=== PATIENT | female | born 1990 | race Caucasian/White ===

== ENCOUNTER 2017-09-08 07:58 | Outpatient (CLI) | payer OTHER ==
--- NOTE | 2017-09-08 11:00 | MRI ---
MRI OF THE CERVICAL SPINE WITH AND WITHOUT IV CONTRAST 09/08/2017 HISTORY: Headaches as well as bilateral upper and lower extremity weakness and numbness. Cervicalgia. Histo ry of Chiari malformation. COMPARISON: MRI of brain on 01/22/2014. FINDINGS: As noted on prior MRI of the brain, there is evidence of a Chiari I malformation. The spinal cord is normal in contour and signal intensity. No intradural or extradural defect is identified. The central spinal canal and neural foramina are widely patent at all levels of the cervical spine. Normal signal intensity is demonstrated in the bone marrow. No abnormal areas of enhancement are seen after the administration of intravenous contrast. IMPRESSION: 1. No intradural or extradural defect is identified. The central spinal canal and neural foramina a re patent throughout the cervical spine. 2. Chiari I malformation which is a stable finding compared to the MRI of brain on 01/22/2014. POS: [facility]
--- NOTE | 2017-09-08 11:07 | MRI ---
MRI OF BRAIN WITH AND WITHOUT IV CONTRAST 09/08/2017 HISTORY: Headache, bilateral upper and lower extremity weakness and numbness. History of Chiari malformation . Compression of brain. COMPARISON: 01/22/2014. FINDINGS: No signal abnormalities are seen throughout the brain. There is no evidence of an acute infarction. No abnormal areas of enhancement are seen after the administration of intravenous contrast. The cerebellar tonsils again extend below the level of the foramen magnum consistent with Chiari I m alformation, unchanged from the prior exam in 2013. The septum pellucidum and third ventricle are in the midline. The ventricular system is normal in s ize, shape, and position. The orbits, paranasal sinuses, and skull base have a normal MRI appearance. Appropriate flow voids d emonstrated at the base of the brain. IMPRESSION: 1. No acute intracranial abnormality is demonstrated. 2. Chiari I malformation, stable and noted on prior study in 2013. 3. MRI of brain is stable from prior exam. POS: [facility]
[2017-09-08] MEDS ORDERED: Gadobenate Dimeglumine 529 MG/1 ML (20ML VIAL) ONE ×2 (16:05→16:06)
== END 2017-09-08 07:59 | disposition home or self-care (01) ==
LOC: MRI 07:58
PROVIDERS: ATTEND Surgery
DX: G93.5 Compression of brain (principal); M54.2 Cervicalgia
CPT/HCPCS: 70553; 72156; A9579

== ENCOUNTER 2017-09-11 08:44 | Outpatient (CLI) | payer OTHER ==
[2017-09-11] MEDS ORDERED: Gadobenate Dimeglumine 529 MG/1 ML (20ML VIAL) ONE ×2 (16:36)
--- NOTE | 2017-09-11 16:42 | MRI ---
MRI LUMBAR SPINE WITH AND WITHOUT CONTRAST: Technique: Multiplanar, multisequential imaging of the lumbar spine obtained. Post contrast images o btained after administration of 10 cc of MultiHance. History: Low back pain. Bilateral lower extremity numbness and tingling. FINDINGS: Lumbar vertebrae maintain normal height and alignment. The disc spaces are preserved. There is no ev idence of significant disc bulge or disc protrusion in any of the visualized lumbar levels. No centr al canal stenosis. IMPRESSION: Unremarkable MRI of the lumbar spine. POS: [facility]
--- NOTE | 2017-09-11 16:55 | MRI ---
MRI THORACIC SPINE WITH AND WITHOUT CONTRAST: Date: 09/11/17 HISTORY: ICD-10: M54.16, M54.6. Bilateral lower extremity hypesthesia and paresthesia. Possible syrinx. TECHNIQUE: Multisequence MRI of thoracic spine obtained pre and post IV injection of 10 mL of MultiHance Gadoli nium based contrast agent. FINDINGS: There is no syrinx. Thoracic spinal cord is normal in size and signal. There is no abnormal enhancem ent or mass in the intramedullary, extramedullary/intradural, extradural, intraosseous, or periverte bral, spaces. The bone marrow signal is normal. No central spinal canal stenosis, neural foraminal s tenosis, cord impingement, or nerve root impingement, at any level. No high grade degenerative botello es. No significant disc herniation. IMPRESSION: Normal. POS: [facility]
--- NOTE | 2017-09-11 17:07 | RAD ---
RADIOGRAPH LUMBAR SPINE 5 VIEWS: HISTORY: 27-year-old female with lumbar radiculopathy. Technique: Three standard views plus lateral flexion and extension views. FINDINGS: Alignment is normal. Vertebral body heights and disc spaces are maintained. There is no evidence of fracture, significant osteophytes, pars interarticularis defects, or any other focal osseous abnorm ality. On the flexion view there is a minimal, 1.5 - 2 mm anterior translation of L4 on L5 which is probably not significant. Otherwise, there is no instability. IMPRESSION: Normal. [place] POS: [facility]
== END 2017-09-11 08:45 | disposition home or self-care (01) ==
LOC: MRI 08:44
PROVIDERS: ATTEND Surgery
DX: M54.16 Radiculopathy, lumbar region (principal); M54.6 Pain in thoracic spine
CPT/HCPCS: 72120; 72157; 72158; A9579

== ENCOUNTER 2017-10-27 17:48 | Observation (INO) | payer OTHER ==
[~2017-10-27 17:48] MED LIST: Iopamidol 370 76% 100 ML VIAL ONE
[2017-10-27 18:27] LABS: #Basophils 0.1 thou/uL (0.0-0.2); #Eosinphils 0.1 thou/uL (0.0-0.7); #Lymphocytes 2.2 thou/uL (1.20-3.40); #Monocytes 0.6 thou/uL (0.11-0.59); #Neutrophils 4.4 thou/uL (1.40-6.50); %Basophils 0.7 % (0.0-1.0); %Lymphocytes 30.4 % (21.0-51.0); %Monocytes 7.9 % (0.0-10.0); Red Blood Cell (RBC) Count 4.68 mill/uL (4.20-5.40); White Blood Cell (WBC) Count 7.4 thou/uL (4.8-10.8)
[2017-10-27 18:52] LABS: ALT (SGPT) 12 U/L (8-55); AST (SGOT) 20 U/L (5-34); Alkaline Phosphatase 63 U/L (40-150); Anion Gap 12 mmol/L (10-20); BUN (Urea Nitrogen) 12 mg/dL (7.0-18.7); CK (CPK) 70 U/L (29-168); Calc. Creatinine Clearance 0 mL/min (70-130); Calcium 10.3 mg/dL (7.8-10.44); Carbon Dioxide 27 mmol/L (22-29); Chloride 102 mmol/L (98-107); Estimated GFR-MDRD 88; Magnesium 2.4 mg/dL (1.6-2.6); Protein, Total 7.6 g/dL (6.0-8.3)
[2017-10-27 18:56] LABS: Troponin I Less than 0.010 ng/mL (< 0.028)
[2017-10-27 19:28] LABS: Bilirubin Negative (Negative); Blood, Urine Negative (Negative); Glucose, Urine (Dipstick) Negative (Negative); Ketone, Urine Negative (Negative); Nitrite Negative (Negative); Protein, Urine (Dipstick) Negative (Neg-Trace); Urobilinogen 0.2 mg/dL (0.2-1.0)
[2017-10-27 19:30] LABS: Bacteria/HPF None Seen HPF (None Seen); Hyaline Casts/LPF 0-3 HYALINE CAST LPF (0-3 Hyaline); RBC/HPF 0-3 HPF (0-3); Squamous Epithelial 0-3 HPF (0-3)
--- NOTE | 2017-10-27 22:06 | CT ---
CTA OF THE THORAX UTILIZING IV CONTRAST PE PROTOCOL WITH 3D REFORMATTED IMAGING 10/27/17 INDICATION: 27-year-old female with history of syncope; feeling weak and shaky since this morning. FINDINGS: No central or segmental pulmonary embolus is evident. Lungs are clear. No enlarged lymph nodes are ev ident. Heart and great vessels appear within normal limits. The visualized upper abdomen demonstrates a 9.5 mm hypodensity within the right hepatic lobe. This lesion was likely present on the comparison examination of 05/18/17 but is better seen today. This is incompletely characterized on the compariso n and current exam. IMPRESSION: 1. No central or segmental pulmonary embolus demonstrated. 2. Small hypodensity within the right hepatic lobe. It is not definitely a cyst and is not sawyer cterizable on the current study. If clinically indicated, followup CT of the abdomen utilizing a blayne ngioma protocol may be helpful for further characterization. MR examination may be another alternativ e. POS: [facility]
[2017-10-27] MEDS ORDERED: ALPRAZolam 0.5 MG TAB PO SCH (23:00)
[2017-10-27] MEDS ORDERED: Pregabalin 50 MG CAP PO SCH (23:00)
[2017-10-27] MEDS ORDERED: SUMAtriptan Succinate 50 MG TAB PO PRN ×2 (23:05→23:51)
[2017-10-27 23:07] VITALS: BMI 19.9
[2017-10-27] MEDS ORDERED: Acetaminophen 325 MG TAB PO PRN (23:07)
[2017-10-27] MEDS ORDERED: Ondansetron ODT 4 MG TAB SL PRN (23:07)
[2017-10-27] MEDS ORDERED: Ondansetron HCl/PF 4 MG/2 ML Vial IVP PRN (23:07)
[2017-10-28] MEDS: Sodium Chloride 0.9% 1,000 ML IV SCH ×2 (00:37→11:44)
[2017-10-28 05:02] LABS: #Eosinphils 0.2 thou/uL (0.0-0.7); #Lymphocytes 2.6 thou/uL (1.20-3.40); #Monocytes 0.6 thou/uL (0.11-0.59); #Neutrophils 3.5 thou/uL (1.40-6.50); %Basophils 0.6 % (0.0-1.0); %Eosinophils 2.6 % (0.0-10.0); %Lymphocytes 37.4 % (21.0-51.0); %Monocytes 8.6 % (0.0-10.0); Hematocrit 41.9 % (36.0-47.0); Mean Platelet Volume 9.9 fL (7.4-10.4); Red Blood Cell (RBC) Count 4.85 mill/uL (4.20-5.40); White Blood Cell (WBC) Count 6.9 thou/uL (4.8-10.8)
[2017-10-28 05:30] LABS: ALT (SGPT) 11 U/L (8-55); AST (SGOT) 18 U/L (5-34); Alkaline Phosphatase 61 U/L (40-150); Anion Gap 10 mmol/L (10-20); BUN (Urea Nitrogen) 13 mg/dL (7.0-18.7); Bilirubin, Total 0.9 mg/dL (0.2-1.2); Calc. Creatinine Clearance 91 mL/min (70-130); Calcium 9.6 mg/dL (7.8-10.44); Carbon Dioxide 26 mmol/L (22-29); Chloride 106 mmol/L (98-107); Estimated GFR-MDRD 89; Globulin 2.9 g/dL (2.4-3.5); Protein, Total 7.1 g/dL (6.0-8.3)
--- NOTE | 2017-10-28 07:35 | HP ---
DATE OF ADMISSION: 10/28/2017 CHIEF COMPLAINT: Generalized weakness mainly to the extremities. HISTORY OF PRESENT ILLNESS: The patient is a 27-year-old, she has significant medical history or his tory of generalized weakness since April of this year and she also has an aunt who also suffers from m ultiple sclerosis. The patient herself reported that within the last 2-3 months, she was experiencin g some, seeing black on her left side and would feel dizzy and would feel her legs giving out and wit hin the last 2-3 days she has been feeling more weakness in her legs and sometimes in both her arms. 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 The patient reported th at this happened twice and she was crawling on the floor because she was feeling so weak. She denied having any loss of consciousness. No trauma to her head. Sometimes, she feels foggy. She reports no fever, no nausea, no vomiting, no recent illness, no abdominal pain, no dysuria, no rash, and no c hest pain. She apparently is supposed to see Dr. Benton, neurologist on the 11/07/2017 for muscular disorder workup. Otherwise, patient has no other medical issues reported. PAST MEDICAL HISTORY: Sometimes migraine headache and generalized weakness that has been going on fo r few months for her. PAST SURGICAL HISTORY: She had three C-sections in the past. SOCIAL HISTORY: She denied using any illicit drugs nor alcohol. She does smoke cigarettes about maty f a pack a day. ALLERGIES: She does not have any allergies. FAMILY HISTORY: Again significant for multiple sclerosis in her aunt according to patient's mother. REVIEW OF SYSTEMS: All 12 systems were reviewed and pertinent positives were mentioned in the HPI, t he rest were negative. PHYSICAL EXAMINATION: VITAL SIGNS: On admission, her blood pressure was normal at 129/78, her pulse was 111, ox sat 98% on room air, respiratory rate was 18 with temperature of 98.1. GENERAL: Constitutionally, her strength for both of her legs is 4/5 and for her hands. Also, arms a nd hand with grasp is 4/5 as well. She is oriented x3. HEENT: Normal head exam. Atraumatic and normocephalic. Her eyes, EOM intact. ENT: Exam is normal. NECK: Normal range of motion. No meningeal sign. No tenderness. RESPIRATORY: Normal breath sounds. Clear. No respiratory distress. CARDIOVASCULAR: Regular heart rate and rhythm. Normal heart sounds. ABDOMEN: Soft, normal bowel sounds, no distention, no mass. No pulsatile mass. BACK: Normal back exam. MUSCULOSKELETAL: Upper and lower extremities with motor strength 4/5 on both left and the right. No rmal pedal pulses bilaterally. Sensation is intact. NEUROLOGIC: No focal sensory deficits. PSYCHIATRIC: A and O x3. Noted nuscle strength weakness. SKIN: Warm, dry, and normal in color. PSYCHIATRIC: She has normal affect. Communicate and conversant appropriately. IMAGING AND LABORATORY DATA: Chest CT was done showing possibility of right lobe of liver with 9.5 m m diameter density that may require additional imaging. Recommending CT hemangioma protocol for furt her evaluation which can be done outpatient. She had an elevated D-dimer on initial presentation of 0.64. CTA was performed which showed as previously mentioned right lobe of the liver with a 9.5 mm d iameter hypodensity. Recommending a CT hemangioma protocol which again can be worked as outpatient. Otherwise, the rest of her labs were within normal limits. WBC of 6.9 and hemoglobin of 13.4. Urin e is negative for any nitrites and leukocyte esterase is moderate to high. IMPRESSION AND PLAN: Generalized muscle weakness mainly in the extremities, causing to fall at home secondary to the weakness in her legs. Plan is for observation, consult OT, PT. Start her on some I V fluids gently at 75 to help her with her strength. Encouraged her to eat and we will consider Neur ology consult for further evaluation. Resume all of her home medications, which includes pregabalin, Lyrica and Celexa along with Xanax which she takes for anxiety and to help her. Patient also takes Imitrex at home for the previously mentioned history of migraine. Condition is fair. Activity as to lerated, bilateral sequential compression devices for deep venous thrombosis prophylaxis. We will co caitlin to follow up with the patient.
[2017-10-28] MEDS ORDERED: Pregabalin 50 MG CAP PO SCH ×2 (09:00)
[2017-10-28] MEDS ORDERED: ALPRAZolam 0.5 MG TAB PO SCH ×2 (09:00)
[2017-10-28] MEDS ORDERED: cefTRIAXone\\ROCEPHIN 1 GM in Sodium Chloride 0.9% 100 ML IVPB SCH (09:00)
[2017-10-28] MEDS ORDERED: cefTRIAXone\\ROCEPHIN 1 GM, Syringe 0.4 ML in Sterile Water 9.6 ML SLOW IVP SCH (09:00)
[2017-10-28] MEDS ORDERED: Citalopram 20 MG TAB PO SCH ×2 (09:00)
--- NOTE | 2017-10-28 11:09 | PDOC.EVN ---
Event Note - Event Note Event Note: Chart reviewed. Pt seen. Pt continues to complain of weakness in all four extremities. Awaiting PT/OT. Neurology service not available until Monday. Pt updated. Started ceftriaxone for ? UTI.
[2017-10-28] MEDS ORDERED: Ibuprofen 800 MG TAB PO PRN (11:17)
[2017-10-28 12:01] VITALS: BP 115/60; TEMP 98.7
--- NOTE | 2017-10-28 22:12 | DIS ---
DATE OF ADMISSION: 10/28/2017 PRIMARY CARE PHYSICIAN: Dr. Sarabjit Kimball. The patient was transferred to [facility] in [place] for further management on 10/28/2017. DISCHARGE DIAGNOSES: Weakness. HOSPITAL COURSE: Ms. Larose is a pleasant 27-year-old lady, who was admitted to [facility] on 10/28/2017 for weakness in all 4 extremities. Please refer to Dr. Mccoy's history and physical note from 2016 for further information. Neurology Service was consulted. However, Neurology Service was not available over this weekend at this facility. She has been accepted for further management at [facility] in [place], [place]. She is currently stable for transfer. Many thanks for allowing me to participate in your patient's care. Please feel free to contact me with any questions or concerns. DISCHARGE DESTINATION: [facility]. AIDE
== END 2017-10-28 16:57 | disposition short-term general hospital (02) ==
LOC: ERS 17:48 → 2SW 21:00
PROVIDERS: ADMIT Family Medicine; ATTEND Family Medicine
DX: R53.1 Weakness (principal); G43.909 Migraine, unspecified, not intractable, without status migrainosus; Z98.891 History of uterine scar from previous surgery
CPT/HCPCS: 36415; 71275; 80053; 81003; 81015; 81025; 82550; 83735; 84443; 84484; 85025; 85379; 96361; 96374; A4216; G0378; J0696; Q0162

== ENCOUNTER 2017-12-18 16:24 | Emergency (ER) | payer OTHER ==
[2017-12-18] MEDS ORDERED: Acetaminophen 500 MG TAB ONE (17:49)
[2017-12-18 18:16] LABS: Bilirubin Negative (Negative); Blood, Urine Large (Negative); Clarity CLOUDY (Clear); Glucose, Urine (Dipstick) Negative (Negative); Leukocyte Trace (Negative); Nitrite Negative (Negative); Protein, Urine (Dipstick) Negative (Neg-Trace); Specific Gravity, Urine 1.017 (1.002-1.036); Urobilinogen 0.2 mg/dL (0.2-1.0)
[2017-12-18 18:19] LABS: Bacteria/HPF None Seen HPF (None Seen); Hyaline Casts/LPF 0-3 HYALINE CAST LPF (0-3 Hyaline); RBC/HPF GREATER THAN 50-TNTC HPF (0-3); Squamous Epithelial 0-3 HPF (0-3); WBC/HPF 0-3 HPF (0-3)
[2017-12-18 18:25] LABS: Pregnancy Test - Urine (BHCG) Negative (Negative); Pregu Control Background? CLEAR/WHITE (CLR/WHITE); Pregu Control Bar Appear? YES (CONTROL BAR); Specific Gravity 1.017 (1.002-1.036)
[2017-12-18] MEDS ORDERED: Ketorolac Tromethamine 30 MG/ML VIAL ONE (18:49)
[2017-12-18] MEDS ORDERED: Diazepam 5 MG TAB ONE (18:50)
[2017-12-18] MEDS ORDERED: Bacitracin Zinc 1 Packet ONE (19:11)
--- NOTE | 2017-12-18 19:12 | RAD ---
LEFT WRIST RADIOGRAPHS THREE VIEWS: Date: 12-18-17 Provided Clinical History: Left wrist pain status post injury. FINDINGS: There is no evidence for fracture or other acute osseous abnormality. If there is persistent clinical concern, conservative management and follow up imaging are advised. IMPRESSION: As above. POS: [facility]
--- NOTE | 2017-12-18 20:09 | RAD ---
THREE VIEWS LEFT HAND: Date: 12-18-17 Provided Clinical History: Left hand pain status post injury. FINDINGS: No evidence for fracture or other acute osseous abnormality. If there is persistent clinical concern, conservative management and follow up imaging are advised. IMPRESSION: As above. POS: [facility]
--- NOTE | 2017-12-18 20:10 | RAD ---
LEFT KNEE RADIOGRAPHS FOUR VIEWS: Date: 12-18-17 Provided Clinical History: Left knee pain status post injury. FINDINGS: There is no evidence for fracture or other acute osseous abnormality. Alignment appears anatomic. Michelle nt spaces appear preserved. No evidence for significant knee joint capsular distention. IMPRESSION: No evidence for an acute abnormality. If there is persistent clinical concern, conservative managemen t and follow up imaging are advised. POS: [facility]
--- NOTE | 2017-12-18 20:12 | RAD ---
LUMBAR SPINE RADIOGRAPHS TWO VIEWS: Date: 12-18-17 Provided Clinical History: Back pain status post injury. FINDINGS: Five non-rib bearing lumbar type vertebral bodies are present. Lumbar alignment appears normal. Verte bral body heights appear preserved. Pedicles appear intact. Probable Schmorl's node formation involvi ng the superior endplate of L3 anteriorly. This could also reflect overlying bowel gas. IMPRESSION: No definite evidence for acute osseous abnormality. If there is persistent clinical concern, conserva tive management and follow up imaging are advised. POS: [facility]
== END 2017-12-18 19:35 | disposition home or self-care (01) ==
LOC: ERS 16:24
DX: T23.112A Burn of first degree of left thumb (nail), initial encounter (principal); S80.212A Abrasion, left knee, initial encounter; M54.5 Low back pain; F41.9 Anxiety disorder, unspecified; F32.9 Major depressive disorder, single episode, unspecified; F17.210 Nicotine dependence, cigarettes, uncomplicated; V43.52XA Car driver injured in collision with other type car in traffic accident, initial encounter
CPT/HCPCS: 72100; 81003; 81015; 81025; 96372; J1885

== ENCOUNTER 2018-06-22 12:16 | Outpatient (CLI) | payer OTHER ==
[2018-06-22 13:39] LABS: Hemoglobin 12.7 g/dL (12.0-16.0); Mean Corpuscular HGB CONC 33.5 g/dL (32.0-36.0); Mean Corpuscular Hemoglobin 27.9 pg (27.0-31.0); Mean Corpuscular Volume 83.2 fL (78.0-98.0); Mean Platelet Volume 9.6 fL (7.4-10.4); Platelet Count 157 thou/uL (130-400); RBC Distribution Width 12.6 % (11.5-14.5); Red Blood Cell (RBC) Count 4.55 mill/uL (4.20-5.40); White Blood Cell (WBC) Count 6.6 thou/uL (4.8-10.8)
[2018-06-22 14:01] LABS: BHCG - Serum Negative (NEGATIVE); Pregs Control Background? CLEAR/WHITE (CLR/WHITE); Pregs Control Bar Appear? YES (CONTROL BAR)
[2018-06-22 14:09] LABS: Anion Gap 11 mmol/L (10-20); BUN (Urea Nitrogen) 10 mg/dL (7.0-18.7); Calc. Creatinine Clearance 0 mL/min (70-130); Calcium 9.5 mg/dL (7.8-10.44); Carbon Dioxide 24 mmol/L (22-29); Chloride 106 mmol/L (98-107); Estimated GFR-MDRD Greater than 90; Glucose 86 mg/dL (70-105); Potassium 4.5 mmol/L (3.5-5.1); Sodium 136 mmol/L (136-145)
== END 2018-06-22 12:17 | disposition home or self-care (01) ==
LOC: LABBT 12:16
PROVIDERS: ATTEND Student in an Organized Health Care Education/Training Program
DX: Z01.812 Encounter for preprocedural laboratory examination (principal); N94.6 Dysmenorrhea, unspecified; N92.0 Excessive and frequent menstruation with regular cycle; N92.6 Irregular menstruation, unspecified
CPT/HCPCS: 80048; 84703; 85027; 86850; 86900; 86901

== ENCOUNTER 2018-06-25 05:48 | Day surgery (SDC) | payer OTHER ==
[2018-06-22 12:59] VITALS: BMI 20.9
[2018-06-25] MEDS ORDERED: Famotidine/PF 20 mg/2ml Vial ONE (06:06)
[2018-06-25] MEDS ORDERED: Gabapentin 300 MG CAP ONE (06:06)
[2018-06-25] MEDS ORDERED: CeleCOXIB 100 MG CAP ONE (06:07)
[2018-06-25] MEDS ORDERED: CEFAZOLIN/Water 2 GM/20 ML SYRINGE ONE (06:08)
[2018-06-25] MEDS ORDERED: Bupivacaine HCl 0.5%/Epinephrine 1:200,000/PF 30 ml Vial ONE (06:56)
[2018-06-25] MEDS ORDERED: Scopolamine 1.5 mg/72 hour Patch ONE (06:57)
[2018-06-25] MEDS ORDERED: Fentanyl 100 MCG/2 ML VIAL ONE (07:11)
[2018-06-25] MEDS ORDERED: Midazolam HCl 2 mg/2 ml Vial ONE (07:28)
[2018-06-25] MEDS ORDERED: HYDROcodone/Acetaminophen 5/325 mg Tablet ONE ×2 (13:20)
[2018-06-25] MEDS ORDERED: Glycopyrrolate 0.2 MG/ML 5 ML SYRINGE ONE (15:05)
[2018-06-25] MEDS ORDERED: Dexamethasone 20 MG/5 ML VIAL ONE (15:05)
[2018-06-25] MEDS ORDERED: PROPOFOL 200 MG/20 ML VIAL ONE (15:05)
[2018-06-25] MEDS ORDERED: Ondansetron HCl/PF 4 MG/2 ML Vial ONE (15:05)
[2018-06-25] MEDS ORDERED: Lidocaine 1% PF 5 ML VIAL ONE (15:05)
--- NOTE | 2018-06-26 11:56 | OP ---
DATE OF OPERATION: 06/25/2018 PREOPERATIVE DIAGNOSES: 1. Menometrorrhagia. 2. Pelvic pain. POSTOPERATIVE DIAGNOSES: 1. Menometrorrhagia. 2. Pelvic pain. PROCEDURES: Robotic assisted single site total laparoscopic hysterectomy and bilateral salpingectomy . ANESTHESIA: General endotracheal. ATTENDING SURGEON: Negar Wyatt M.D. DEPARTMENT SECRETARY: Fabrizio Sanchez M.D. COMPLICATIONS: None. DRAINS: Mary catheter. PATHOLOGY: Uterus, cervix, bilateral fallopian tubes. ESTIMATED BLOOD LOSS: 100 mL. INTRAVENOUS FLUIDS: 1300 mL crystalloid. URINE OUTPUT: 350 mL of clear urine. OPERATIVE TECHNIQUE: The patient was taken to the operating room where general anesthesia was obtain ed without difficulty. The patient was prepped and draped in a sterile fashion in a dorsal lithotomy position. A Mary catheter was placed in the bladder. A speculum was placed in the vagina. The an terior lip of the cervix was grasped with a single tooth tenaculum. The cervix was progressively dil ated with Benito dilators and the uterus then sounded to 8 cm. The ESTEPHANIA manipulator was assembled with an 8 cm tip and a 3.5 cm colpotomizer ring. The manipulator tip was inserted into the uterine fundu s and speculum was removed out of the vagina and the colpotomizer ring was advanced to fit snugly mat und the cervix and tenaculum was removed off the cervix. Legs were placed in low lithotomy. Balloon s were inflated and attention was turned to the abdomen. A 0.5% Marcaine with epinephrine was infilt rated into the umbilicus. An 8 mm skin incision was made in the umbilicus and the Veress needle was passed into the abdomen noting an opening pressure of 2 mmHg. Pneumoperitoneum was obtained without difficulty. The Veress needle was removed and the 8 mm trocar was advanced into the abdomen and conf irmed placement with the robotic camera. Trendelenburg was obtained. At that point, there was a sin gle filmy omental adhesion to the mid abdomen and there were some filmy adhesions of the bladder flap noted. Single site was felt to be feasible and therefore, 8 mm camera and trocar were removed out o f the abdomen. The umbilicus was grasped with Antoine's bilaterally, tented up the abdominal wall and skin incision was extended to approximately 2.5 cm total and the subcutaneous tissue was dissected o ff of the fascia with the Conte scissors and the fascia was sharply incised with the Conte scissors to accommodate approximately 2.5 cm. At that time, the intuitive single site trocar was moistened and c lamped with the Kajal clamp. A right angle was used to tent up the abdominal wall and this trocar wa s inserted into the umbilical incision. Once inserted, the camera port was placed into it and pneumo peritoneum had been reestablished. The camera was inserted and at that time, the single site trocars were inserted first on arm #2 followed by arm #1 watching the trocars entering into the abdomen on e ach side. The robot was then brought in between the legs to dock. A camera was docked first followe d by arm #2 and then arm #1 again noting the location of the distal tip of the trocar. After docking , the instruments were placed into the abdomen under direct visualization on first arm #2, then arm # 1 and at that time, a left upper quadrant library assistant port was placed, it was an 11 mm after infiltrati ng with 0.5% Marcaine with epinephrine. The surgeon console then took control. The hook was present in the right arm and the fenestrated was present in the left arm. The right fallopian tube was gras ped and elevated. Cautery was performed of the distal end of the mesosalpinx and the hook was used t o incise this cauterized area. The avascular portion just below the fallopian tube was incised with a hook to the level of the cornua. The fallopian tube was then clamped across, cauterized, transecte d and removed out of the abdomen by the library assistant. The utero-ovarian on the right side was cauterize d multiple times and then incised with the hook in the midportion and cautery was performed down to t he level of the round ligament followed by incision. The round ligament was cauterized in the midpor tion and then incised with a hook. The anterior leaf of the broad ligament was then opened up down t o the level of the bladder flap and then the posterior leaf was also dropped down. Some blunt dissec tion of the retroperitoneum was performed to begin skeletonizing the vessels. The bladder flap was t hen addressed. The fenestrated was slipped underneath the filmy adhesions to the lower segment and t hus a clear window was noted. The hook was used to incise. The initial layer was a very filmy howev er, down below became slightly more dense. The bladder was backfilled to note the limitations of the bladder and it was noted that close to the uterus was just scar. No actual bladder was present and so this was carefully layered out, taking a lateral approach and incising thin portions of tissue as long as it was clearly seen through with a hook and hemostasis was achieved with hook the as well as the fenestrated irrigation was performed of this area as well. The left fallopian tube was then gras ped and elevated and the mesosalpinx at the distal end was cauterized with the fenestrated and then i ncised with the hook and avascular portion of the mesosalpinx was incised with the hook to the level of the cornua. The fallopian tube was clamped across, cauterized, transected and removed out of the abdomen. The utero-ovarian was cauterized multiple times and transected, and mesovarium was sequenti ally clamped, cauterized, and transected down to the level of the round ligament. For hemostasis, th e round ligament was clamped in the mid portion cauterized and transected. The posterior leaf of the broad ligament was dropped down to the level of the uterosacral and the retroperitoneum was bluntly dissected with a push and spread method with the fenestrated to develop the space allow the ureter to fall more lateral and to skeletonizing the uterine vessels. The anterior leaf of the broad ligament was also opened up and this was done carefully undermining with the fenestrated to ensure a clear wi ndow and that there were no bladder adhesions higher up on the uterus. This was taken down to the bl adder flap. Again, the bladder flap was a little bit more densely scarred on the left side and so ca reful dissection of the bladder to ensure no inadvertent damage was performed including backfilling a nd decompressing multiple times and approaching a lateral window and then layering out as long as a c lear see through tissue is present to allow the bladder to be dissected below the level of the colpot omizer ring. Once this was completed, the pubocervical fascia was scored with the hook and then blun t dissection distally was performed to ensure any adventitial fibers was to be taken down below the l evel of the colpotomizer ring and that the pubocervical fascia will be incorporated into the closure for support. The vessels were then cauterized bilaterally with the fenestrated. Anterior colpotomy was performed with the hook. This was carried around laterally and the fenestrated was slipped under neath the uterine pedicles and cauterized for additional securing and hemostasis. The vessels were t hen incised bilaterally after cautery and the hook also was used to drop the uterine pedicle away fro m the vaginal cuff edge medially and then posterior colpotomy was performed and completed and the morongo raúl was then removed into the vagina. Irrigation was performed of the pelvis and the hemostasis was noted to be excellent on low pressure check. The hook was traded out for the needle driver starting gate and the S tratafix suture was used and was passed into the abdomen. The vaginal cuff was then closed; however, difficulty was met in driving the needle through the tissue secondary to angulation and possibly mal functioning needle driver starting gate. After approximately 20 minutes of attempting this closure and having diff iculty driving the needle to the tissue and also just difficulty in general to pull the suture throug h, the decision was made to close vaginally. Therefore, the needle was cut and removed out of the ab domen. The instruments were removed out of the abdomen and the robot was undocked. The vaginal cuff edges anterior and posteriorly was grasped with Allis clamps and the vaginal cuff was closed with 0 Vicryl in a [id number]-gh-ruyre fashion with excellent closure noted. There was no active bleeding and t his was closed all the way across from below. At that time, attention was turned to the abdomen. Th e camera was inserted back into the abdomen. Pneumoperitoneum was re-established and a 7 x 6 AmnioFi x was trimmed down to approximately 6 x 4 cm and this was placed over the vaginal cuff after irrigati on had been performed for improved wound healing and to prevent adhesions. At that time, the camera and instruments were removed out of the abdomen. The trocar was also removed out of the abdomen. Th e fascia was closed with 0 Vicryl in a craevu-rr-ksglo fashion. This required approximately 5 figure -of-eights. The subcutaneous tissue was irrigated. The remaining 2 x 2 cm and AmnioFix piece was pl aced on top of the fascia, and the skin was then closed over it with a 4-0 Monocryl in a subcuticular fashion and Dermabond was applied as well as a pressure dressing. The patient tolerated the procedu re well. Sponge and needle counts were correct x2. The patient was taken to recovery room in stable condition. Patient received Ancef 2 grams prior to procedure.
== END 2018-06-25 16:01 | disposition home or self-care (01) ==
LOC: SDC 05:48
PROVIDERS: ATTEND Student in an Organized Health Care Education/Training Program
PROC: 0UT74ZZ Resection of Bilateral Fallopian Tubes, Percutaneous Endoscopic Approach (ICD-10-PCS; principal; 2018-06-25)
PROC: 0UT94ZZ Resection of Uterus, Percutaneous Endoscopic Approach (ICD-10-PCS; principal; 2018-06-25)
DX: N73.6 Female pelvic peritoneal adhesions (postinfective) (principal); N94.6 Dysmenorrhea, unspecified; N92.0 Excessive and frequent menstruation with regular cycle; F41.9 Anxiety disorder, unspecified; F32.9 Major depressive disorder, single episode, unspecified; G43.909 Migraine, unspecified, not intractable, without status migrainosus; F17.210 Nicotine dependence, cigarettes, uncomplicated; Z79.899 Other long term (current) drug therapy; Z98.51 Tubal ligation status
CPT/HCPCS: 88307; C1788; J0670; J1100; J2001; J2250; J2405; J2704; J3010; Q9968; S0028

== ENCOUNTER 2018-07-02 20:36 | Emergency (ER) | payer OTHER ==
[~2018-07-02 20:36] MED LIST changes: +ISOVUE-370 76%-LOCM 1 ML ONE; -Iopamidol 370 76% 100 ML VIAL ONE
[2018-07-02 21:04] LABS: Bilirubin Negative (Negative); Blood, Urine Moderate (Negative); Clarity CLOUDY (Clear); Glucose, Urine (Dipstick) Negative (Negative); Leukocyte Moderate (Negative); Nitrite Negative (Negative); Protein, Urine (Dipstick) Negative (Neg-Trace); Specific Gravity, Urine 1.015 (1.002-1.036); Urobilinogen 0.2 mg/dL (0.2-1.0); pH, Urine 5.5 (5.0-9.0)
[2018-07-02 21:07] LABS: Bacteria/HPF None Seen HPF (None Seen); Hyaline Casts/LPF 4-6 HYALINE CAST LPF (0-3 Hyaline); Pathc Cast-AUWi Flag 0.72 (0-2.49); WBC/HPF 21-50 HPF (0-3)
[2018-07-02 22:05] LABS: #Eosinphils 0.2 thou/uL (0.0-0.7); #Lymphocytes 1.6 thou/uL (1.20-3.40); #Monocytes 0.6 thou/uL (0.11-0.59); #Neutrophils 5.1 thou/uL (1.40-6.50); %Basophils 0.6 % (0.0-1.0); %Eosinophils 2.7 % (0.0-10.0); %Lymphocytes 20.6 % (21.0-51.0); %Monocytes 7.7 % (0.0-10.0); %Neutrophils 68.3 % (42.0-75.0); Hemoglobin 12.6 g/dL (12.0-16.0); Mean Corpuscular HGB CONC 34.6 g/dL (32.0-36.0); Mean Corpuscular Hemoglobin 28.6 pg (27.0-31.0); Mean Corpuscular Volume 82.8 fL (78.0-98.0); Mean Platelet Volume 9.7 fL (7.4-10.4); Platelet Count 175 thou/uL (130-400); RBC Distribution Width 12.7 % (11.5-14.5); Red Blood Cell (RBC) Count 4.41 mill/uL (4.20-5.40); White Blood Cell (WBC) Count 7.5 thou/uL (4.8-10.8)
[2018-07-02 22:20] LABS: ALT (SGPT) 10 U/L (8-55); AST (SGOT) 16 U/L (5-34); Albumin 4.4 g/dL (3.5-5.0); Alkaline Phosphatase 61 U/L (40-150); Anion Gap 16 mmol/L (10-20); BUN (Urea Nitrogen) 18 mg/dL (7.0-18.7); Bilirubin, Total 0.8 mg/dL (0.2-1.2); Calc. Creatinine Clearance 0 mL/min (70-130); Calcium 9.9 mg/dL (7.8-10.44); Carbon Dioxide 23 mmol/L (22-29); Chloride 106 mmol/L (98-107); Estimated GFR-MDRD 87; Globulin 3.1 g/dL (2.4-3.5); Glucose 90 mg/dL (70-105); Lipase 12 U/L (8-78); Potassium 3.9 mmol/L (3.5-5.1); Protein, Total 7.5 g/dL (6.0-8.3); Sodium 141 mmol/L (136-145)
--- NOTE | 2018-07-02 23:27 | CT ---
CT ABDOMEN AND PELVIS WITH IV CONTRAST: INDICATIONS: History of hysterectomy today with increasing pain and vomiting. COMPARISON: Prior exam dated 05/18/2017. FINDINGS: The lung bases are clear. There is a moderate amount of scattered free air within the abdomen and pelvis. There is a 1.2 cm, heterogeneously enhancing lesion in the right hepatic dome when compared to a prio r exam dated 05/18/2017, and a CTA chest dated 10/27/2017, is suspicious for a small hemangioma. The pancreas, adrenal glands, and spleen appear within normal limits. There is a normal appendix in the right lower quadrant. There is mild free fluid in the pelvis. Unopacified large and small bowel appear within normal limits. No definite acute osseous abnormality is evident. IMPRESSION: 1. Scattered moderate free air within the abdomen and pelvis, which may be post procedural in nature . Bowel injury cannot be entirely excluded. But no additional overt evidence of bowel injury. 2. Mild free fluid in the pelvis also may be post procedural in nature. 3. Heterogeneously enhancing hypodense lesion in the right hepatic dome and seen on a CTA examinatio n dated 10/27/2017. This was also seen on a CT of the abdomen and pelvis dated 05/18/2017. Overall, the enhancement pattern of this lesion is suspicious for hemangioma; however, this is incompletely c haracterized. Recommend a follow-up MRI of the abdomen, utilizing hemangioma protocol for additional characterized. 4. Other findings as above. POS: [facility]
== END 2018-07-03 00:20 | disposition home or self-care (01) ==
LOC: ERS 20:36
DX: G89.18 Other acute postprocedural pain (principal); D18.09 Hemangioma of other sites; G43.909 Migraine, unspecified, not intractable, without status migrainosus; F41.9 Anxiety disorder, unspecified; F32.9 Major depressive disorder, single episode, unspecified; F17.210 Nicotine dependence, cigarettes, uncomplicated; Z79.899 Other long term (current) drug therapy
CPT/HCPCS: 74177; 80053; 81003; 81015; 83605; 83690; 85025; 87086; 96361; 96374; 96375

== ENCOUNTER 2018-07-12 19:11 | Emergency (ER) | payer OTHER ==
[2018-07-12 19:36] LABS: Bilirubin Negative (Negative); Blood, Urine Trace (Negative); Clarity CLEAR (Clear); Glucose, Urine (Dipstick) Negative (Negative); Leukocyte Negative (Negative); Nitrite Negative (Negative); Protein, Urine (Dipstick) Negative (Neg-Trace); Specific Gravity, Urine 1.022 (1.002-1.036); Urobilinogen 0.2 mg/dL (0.2-1.0)
[2018-07-12 19:38] LABS: Bacteria/HPF None Seen HPF (None Seen); Hyaline Casts/LPF 0-3 HYALINE CAST LPF (0-3 Hyaline); Squamous Epithelial 0-3 HPF (0-3); WBC/HPF 0-3 HPF (0-3)
[2018-07-12 19:41] LABS: #Eosinphils 0.1 thou/uL (0.0-0.7); #Lymphocytes 1.9 thou/uL (1.20-3.40); #Monocytes 0.5 thou/uL (0.11-0.59); #Neutrophils 3.4 thou/uL (1.40-6.50); %Basophils 0.7 % (0.0-1.0); %Eosinophils 2.2 % (0.0-10.0); %Lymphocytes 31.7 % (21.0-51.0); %Monocytes 7.9 % (0.0-10.0); %Neutrophils 57.5 % (42.0-75.0); Hemoglobin 12.5 g/dL (12.0-16.0); Mean Corpuscular HGB CONC 32.7 g/dL (32.0-36.0); Mean Corpuscular Hemoglobin 27.5 pg (27.0-31.0); Mean Corpuscular Volume 84.1 fL (78.0-98.0); Mean Platelet Volume 9.9 fL (7.4-10.4); Platelet Count 225 thou/uL (130-400); RBC Distribution Width 12.5 % (11.5-14.5); Red Blood Cell (RBC) Count 4.55 mill/uL (4.20-5.40)
[2018-07-12 20:03] LABS: ALT (SGPT) 11 U/L (8-55); AST (SGOT) 16 U/L (5-34); Albumin 4.4 g/dL (3.5-5.0); Alkaline Phosphatase 64 U/L (40-150); Anion Gap 9 mmol/L (10-20); BUN (Urea Nitrogen) 21 mg/dL (7.0-18.7); Bilirubin, Total 0.4 mg/dL (0.2-1.2); Calc. Creatinine Clearance 0 mL/min (70-130); Calcium 9.7 mg/dL (7.8-10.44); Carbon Dioxide 24 mmol/L (22-29); Chloride 109 mmol/L (98-107); Estimated GFR-MDRD Greater than 90; Globulin 2.7 g/dL (2.4-3.5); Glucose 77 mg/dL (70-105); Potassium 4.2 mmol/L (3.5-5.1); Protein, Total 7.1 g/dL (6.0-8.3); Sodium 138 mmol/L (136-145)
[2018-07-12] MEDS ORDERED: Ketorolac Tromethamine 30 MG/ML VIAL ONE (21:37)
--- NOTE | 2018-07-12 22:31 | CT ---
CT ABDOMEN WITH CONTRAST CT PELVIS WITH CONTRAST: DATE: 07/12/18 TIME: 9:49 p.m. HISTORY: 27-year-old female with generalized abdominal pain, fever, and diarrhea. A few weeks status post hyst erectomy. COMPARISON: 07/02/18. TECHNIQUE: IV injection of iodinated contrast media: Administered. Oral contrast media: Not administered. FINDINGS: The previously demonstrated postsurgical pneumoperitoneum has resolved. Again noted is the small, 1.2 cm focal lesion in the dome of the right lobe of the liver, with nodular enhancement, which is stabl e since CT of 05/18/17, and may be a hemangioma. The rest of the liver, abdominal aorta, bilateral kid neys, adrenals, pancreas, liver, and spleen, are normal. Nonspecific appearance of the urinary bladde r with no gross abnormality. The appendix is difficult to identify. There is a new finding of stool b acking up across the ileocecal valve into the terminal ileum. There is no small bowel dilation. There was small to moderate amount of free fluid in the dependent portion of the pelvic cavity on the prev ious CT, which may have represented a small amount of postsurgical hemoperitoneum. That has significa ntly decreased in volume. Currently, there is diffuse fat stranding throughout the pelvic cavity cons istent with residual edema. The uterus is absent. Lung bases are clear. IMPRESSION: 1. Status post hysterectomy. 2. Extensive edema fluid throughout the pelvic cavity, presumably due to recent surgery. 3. The small amount of hemoperitoneum in the posterior, dependent portion of the pelvic cavity, has almost resolved, other than the edema in the pelvic cavity. 4. The appendix is difficult to identify. 5. Fecalization of the distal ileum, nonspecific. No small bowel obstruction. YOAN Esposito POS: [facility]
== END 2018-07-12 22:43 | disposition home or self-care (01) ==
LOC: ERS 19:11
DX: G89.18 Other acute postprocedural pain (principal); K59.00 Constipation, unspecified; F32.9 Major depressive disorder, single episode, unspecified; F41.9 Anxiety disorder, unspecified; F17.210 Nicotine dependence, cigarettes, uncomplicated; G43.909 Migraine, unspecified, not intractable, without status migrainosus; Z79.899 Other long term (current) drug therapy
CPT/HCPCS: 36415; 74177; 80053; 81003; 81015; 85025; 96374; J1885

== ENCOUNTER 2018-09-08 23:48 | Emergency (ER) | payer OTHER ==
[2018-09-09 00:19] LABS: Bilirubin Negative (Negative); Blood, Urine Large (Negative); Clarity CLOUDY (Clear); Glucose, Urine (Dipstick) Negative (Negative); Leukocyte Moderate (Negative); Nitrite Negative (Negative); Protein, Urine (Dipstick) Trace mg/dL (Neg-Trace); Specific Gravity, Urine 1.025 (1.002-1.036); Urobilinogen 0.2 mg/dL (0.2-1.0)
[2018-09-09 00:20] LABS: Bacteria/HPF 1+ HPF (None Seen); Hyaline Casts/LPF 0-3 HYALINE CAST LPF (0-3 Hyaline); Pathc Cast-AUWi Flag 0.29 (0-2.49); RBC/HPF GREATER THAN 50-TNTC HPF (0-3); Squamous Epithelial 0-3 HPF (0-3)
[2018-09-09 00:34] LABS: #Basophils 0.1 thou/uL (0.0-0.2); #Eosinphils 0.2 thou/uL (0.0-0.7); #Lymphocytes 1.9 thou/uL (1.20-3.40); #Monocytes 0.4 thou/uL (0.11-0.59); #Neutrophils 3.1 thou/uL (1.40-6.50); %Basophils 1.1 % (0.0-1.0); %Eosinophils 3.7 % (0.0-10.0); %Lymphocytes 32.9 % (21.0-51.0); %Monocytes 7.4 % (0.0-10.0); %Neutrophils 54.9 % (42.0-75.0); Hemoglobin 12.5 g/dL (12.0-16.0); Mean Corpuscular HGB CONC 32.6 g/dL (32.0-36.0); Mean Corpuscular Hemoglobin 27.9 pg (27.0-31.0); Mean Corpuscular Volume 85.5 fL (78.0-98.0); Mean Platelet Volume 9.6 fL (7.4-10.4); Platelet Count 176 thou/uL (130-400); RBC Distribution Width 13.1 % (11.5-14.5); White Blood Cell (WBC) Count 5.7 thou/uL (4.8-10.8)
[2018-09-09 00:56] LABS: ALT (SGPT) 15 U/L (8-55); AST (SGOT) 21 U/L (5-34); Albumin 4.2 g/dL (3.5-5.0); Alkaline Phosphatase 55 U/L (40-150); Anion Gap 10 mmol/L (10-20); BUN (Urea Nitrogen) 16 mg/dL (7.0-18.7); Bilirubin, Total 0.6 mg/dL (0.2-1.2); Calc. Creatinine Clearance 0 mL/min (70-130); Calcium 9.4 mg/dL (7.8-10.44); Carbon Dioxide 27 mmol/L (22-29); Chloride 108 mmol/L (98-107); Estimated GFR-MDRD Greater than 90; Globulin 2.6 g/dL (2.4-3.5); Glucose 95 mg/dL (70-105); Potassium 3.2 mmol/L (3.5-5.1); Protein, Total 6.8 g/dL (6.0-8.3); Sodium 142 mmol/L (136-145)
[2018-09-09] MEDS ORDERED: cefTRIAXone\\ROCEPHIN 2 GM VIAL ONE (03:01)
--- NOTE | 2018-09-09 08:44 | CT ---
CT ABDOMEN AND PELVIS NONCONTRAST: Date: 09/09/18 INDICATION: Pain. COMPARISON: 07/12/18. FINDINGS: There is punctate nonobstructing nephrolithiasis of the superior pole of the left kidney. No right-si ded urolithiasis. Small hypodensity of the lateral aspect of the right hepatic lobe corresponds to hy perdensity on prior CT, and is grossly stable in volume. There is no consolidation of the lung bases. The bowel is incompletely assessed without IV or enteric contrast. There is no free air or significa nt ascites. Minimal fat stranding remains within the pelvis without significant free pelvic fluid. Th ere is no acute osseous pathology. IMPRESSION: 1. Punctate nonobstructing left nephrolithiasis. 2. Small hypodensity of the right hepatic lobe corresponding to the prior hyperdensity, grossly stab le in volume. 3. Evaluation otherwise limited on basis of noncontrast technique. POS: [facility]
== END 2018-09-09 03:51 | disposition home or self-care (01) ==
LOC: ERS 23:48
DX: N39.0 Urinary tract infection, site not specified (principal); G43.909 Migraine, unspecified, not intractable, without status migrainosus; F41.9 Anxiety disorder, unspecified; F32.9 Major depressive disorder, single episode, unspecified; F17.210 Nicotine dependence, cigarettes, uncomplicated; Z79.899 Other long term (current) drug therapy
CPT/HCPCS: 74176; 80053; 81003; 81015; 85025; 87077; 87086; 87186; 96365; J0696

== ENCOUNTER 2018-10-02 17:50 | Emergency (ER) | payer OTHER ==
[2018-10-02 18:35] LABS: #Basophils 0.1 thou/uL (0.0-0.2); #Eosinphils 0.1 thou/uL (0.0-0.7); #Lymphocytes 2.2 thou/uL (1.20-3.40); #Monocytes 0.5 thou/uL (0.11-0.59); #Neutrophils 4.5 thou/uL (1.40-6.50); %Lymphocytes 29.5 % (21.0-51.0); %Monocytes 6.5 % (0.0-10.0); Hemoglobin 13.5 g/dL (12.0-16.0); Mean Corpuscular HGB CONC 33.1 g/dL (32.0-36.0); Mean Corpuscular Hemoglobin 28.2 pg (27.0-31.0); Mean Corpuscular Volume 85.1 fL (78.0-98.0); Platelet Count 169 thou/uL (130-400); RBC Distribution Width 12.7 % (11.5-14.5); Red Blood Cell (RBC) Count 4.79 mill/uL (4.20-5.40); White Blood Cell (WBC) Count 7.4 thou/uL (4.8-10.8)
[2018-10-02 18:57] LABS: ALT (SGPT) 12 U/L (8-55); AST (SGOT) 17 U/L (5-34); Albumin 4.6 g/dL (3.5-5.0); Alkaline Phosphatase 57 U/L (40-150); Anion Gap 13 mmol/L (10-20); BUN (Urea Nitrogen) 20 mg/dL (7.0-18.7); Bilirubin, Total 0.9 mg/dL (0.2-1.2); Calc. Creatinine Clearance 0 mL/min (70-130); Calcium 9.8 mg/dL (7.8-10.44); Carbon Dioxide 25 mmol/L (22-29); Chloride 105 mmol/L (98-107); Estimated GFR-MDRD 89; Globulin 2.9 g/dL (2.4-3.5); Glucose 88 mg/dL (70-105); Potassium 4.1 mmol/L (3.5-5.1); Protein, Total 7.5 g/dL (6.0-8.3); Sodium 139 mmol/L (136-145)
[2018-10-02 19:13] LABS: Bilirubin Negative (Negative); Blood, Urine Negative (Negative); Clarity CLEAR (Clear); Glucose, Urine (Dipstick) Negative (Negative); Leukocyte Small (Negative); Nitrite Negative (Negative); Protein, Urine (Dipstick) Negative (Neg-Trace); Specific Gravity, Urine 1.027 (1.002-1.036); Urobilinogen 0.2 mg/dL (0.2-1.0); pH, Urine 5.5 (5.0-9.0)
[2018-10-02 19:18] LABS: Bacteria/HPF None Seen HPF (None Seen); Hyaline Casts/LPF 0-3 HYALINE CAST LPF (0-3 Hyaline); Pathc Cast-AUWi Flag 0.14 (0-2.49); Pregnancy Test - Urine (BHCG) Negative (Negative); RBC/HPF 0-3 HPF (0-3); Specific Gravity 1.027 (1.002-1.036); Squamous Epithelial 0-3 HPF (0-3); WBC/HPF 0-3 HPF (0-3)
[2018-10-02 19:19] LABS: Pregu Control Background? CLEAR/WHITE (CLR/WHITE); Pregu Control Bar Appear? YES (CONTROL BAR)
[2018-10-02] MEDS ORDERED: Ketorolac Tromethamine 30 MG/ML VIAL ONE (19:26)
--- NOTE | 2018-10-02 22:42 | ULT ---
TRANSABDOMINAL PELVIC ULTRASOUND: 10/02/18 INDICATION: Pelvic pain with nausea and vomiting and history of partial hysterectomy. TECHNIQUE: Cleaning scale, color doppler and spectral doppler images were obtained of the pelvis. FINDINGS: The uterus is surgically absent. The right ovary measures 4.4 x 3.0 x 4.7 cm. There is normal flow to the right ovary. There is a 3.3 cm nonvascularized complex cystic lesion involving the right ovary suspicious for hemorrhagic cyst. The left ovary measures 2.8 x 2.2 x 1.9 cm. There is normal flow to the left ovary. No free fluid is evident. IMPRESSION: 1. Right ovarian hemorrhagic cyst. 2. Hysterectomy. POS: [facility]
== END 2018-10-02 22:06 | disposition home or self-care (01) ==
LOC: ERS 17:50
DX: N83.201 Unspecified ovarian cyst, right side (principal); G43.909 Migraine, unspecified, not intractable, without status migrainosus; F41.9 Anxiety disorder, unspecified; F17.210 Nicotine dependence, cigarettes, uncomplicated; Z79.899 Other long term (current) drug therapy
CPT/HCPCS: 76856; 80053; 81003; 81015; 81025; 85025; 93976; 96374; J1885

== ENCOUNTER 2018-10-21 20:19 | Emergency (ER) | payer OTHER ==
[2018-10-21] MEDS ORDERED: Dexamethasone 4 mg/ml Vial ONE (20:59)
[2018-10-21] MEDS ORDERED: Metoclopramide HCl 10 MG/2 ML VIAL ONE (21:00)
[2018-10-21] MEDS ORDERED: Ketorolac Tromethamine 30 MG/ML VIAL ONE (21:00)
== END 2018-10-21 22:12 | disposition home or self-care (01) ==
LOC: ERS 20:19
DX: G43.909 Migraine, unspecified, not intractable, without status migrainosus (principal); F41.9 Anxiety disorder, unspecified; F32.9 Major depressive disorder, single episode, unspecified; F17.210 Nicotine dependence, cigarettes, uncomplicated; Z79.899 Other long term (current) drug therapy
CPT/HCPCS: 96365; 96375; J1100; J1885; J2765

== ENCOUNTER 2018-12-13 20:28 | Emergency (ER) | payer OTHER ==
[2018-12-13 21:35] LABS: #Basophils 0.1 thou/uL (0.0-0.2); #Eosinphils 0.1 thou/uL (0.0-0.7); #Lymphocytes 2.2 thou/uL (1.20-3.40); #Monocytes 0.5 thou/uL (0.11-0.59); #Neutrophils 3.4 thou/uL (1.40-6.50); %Basophils 0.9 % (0.0-1.0); %Eosinophils 1.5 % (0.0-10.0); %Lymphocytes 35.7 % (21.0-51.0); %Monocytes 7.4 % (0.0-10.0); %Neutrophils 54.6 % (42.0-75.0); Mean Corpuscular HGB CONC 33.6 g/dL (32.0-36.0); Mean Corpuscular Hemoglobin 29.2 pg (27.0-31.0); Mean Platelet Volume 9.1 fL (7.4-10.4); Platelet Count 197 thou/uL (130-400); RBC Distribution Width 11.6 % (11.5-14.5); Red Blood Cell (RBC) Count 4.45 mill/uL (4.20-5.40); White Blood Cell (WBC) Count 6.2 thou/uL (4.8-10.8)
[2018-12-13 21:49] LABS: Bilirubin Negative (Negative); Blood, Urine Negative (Negative); Clarity TURBID (Clear); Glucose, Urine (Dipstick) Negative (Negative); Leukocyte Trace (Negative); Nitrite Negative (Negative); Protein, Urine (Dipstick) Negative (Neg-Trace); Specific Gravity, Urine 1.018 (1.002-1.036); Urobilinogen 0.2 mg/dL (0.2-1.0)
[2018-12-13 21:50] LABS: Bacteria/HPF None Seen HPF (None Seen); Hyaline Casts/LPF 0-3 HYALINE CAST LPF (0-3 Hyaline); Pathc Cast-AUWi Flag 0.58 (0-2.49); Pregnancy Test - Urine (BHCG) Negative (Negative); Pregu Control Background? CLEAR/WHITE (CLR/WHITE); Pregu Control Bar Appear? YES (CONTROL BAR); Specific Gravity 1.018 (1.002-1.036); Squamous Epithelial 0-3 HPF (0-3); WBC/HPF 0-3 HPF (0-3)
[2018-12-13 21:57] LABS: ALT (SGPT) 16 U/L (8-55); AST (SGOT) 18 U/L (5-34); Albumin 4.5 g/dL (3.5-5.0); Alkaline Phosphatase 55 U/L (40-150); Anion Gap 14 mmol/L (10-20); BUN (Urea Nitrogen) 13 mg/dL (7.0-18.7); Bilirubin, Total 0.8 mg/dL (0.2-1.2); Calc. Creatinine Clearance 0 mL/min (70-130); Calcium 9.6 mg/dL (7.8-10.44); Carbon Dioxide 23 mmol/L (22-29); Chloride 106 mmol/L (98-107); Estimated GFR-MDRD Greater than 90; Globulin 2.6 g/dL (2.4-3.5); Glucose 91 mg/dL (70-105); Lipase 13 U/L (8-78); Potassium 3.8 mmol/L (3.5-5.1); Protein, Total 7.1 g/dL (6.0-8.3); Sodium 139 mmol/L (136-145)
[2018-12-14] MEDS ORDERED: Ketorolac Tromethamine 30 MG/ML VIAL ONE (00:12)
== END 2018-12-14 00:19 | disposition home or self-care (01) ==
LOC: ERS 20:28
DX: R10.30 Lower abdominal pain, unspecified (principal); M79.7 Fibromyalgia; F41.9 Anxiety disorder, unspecified; F32.9 Major depressive disorder, single episode, unspecified; Q07.00 Arnold-Chiari syndrome without spina bifida or hydrocephalus; G62.9 Polyneuropathy, unspecified; F17.210 Nicotine dependence, cigarettes, uncomplicated; Z79.899 Other long term (current) drug therapy
CPT/HCPCS: 36415; 80053; 81003; 81015; 81025; 83690; 85025; 96372; J1885

== ENCOUNTER 2019-09-26 18:30 | Emergency (ER) | payer OTHER ==
[2019-09-26] MEDS ORDERED: Dexamethasone 10 MG/ML VIAL ONE (18:59)
== END 2019-09-26 19:00 | disposition home or self-care (01) ==
LOC: ERS 18:30
DX: J32.1 Chronic frontal sinusitis (principal); B96.89 Other specified bacterial agents as the cause of diseases classified elsewhere; G43.909 Migraine, unspecified, not intractable, without status migrainosus; F41.9 Anxiety disorder, unspecified; F32.9 Major depressive disorder, single episode, unspecified; F17.210 Nicotine dependence, cigarettes, uncomplicated
CPT/HCPCS: 99283; J1100

== ENCOUNTER 2019-10-22 17:50 | Emergency (ER) | payer OTHER ==
[2019-10-22 18:22] LABS: #Eosinphils 0.2 thou/uL (0.0-0.7); #Lymphocytes 2.3 thou/uL (1.20-3.40); #Monocytes 0.5 thou/uL (0.11-0.59); #Neutrophils 3.8 thou/uL (1.40-6.50); %Basophils 0.7 % (0.0-1.0); %Eosinophils 2.7 % (0.0-10.0); %Lymphocytes 33.2 % (21.0-51.0); %Monocytes 7.2 % (0.0-10.0); %Neutrophils 56.2 % (42.0-75.0); Hemoglobin 13.3 g/dL (12.0-16.0); Mean Corpuscular HGB CONC 33.6 g/dL (32.0-36.0); Mean Corpuscular Volume 86.4 fL (78.0-98.0); Mean Platelet Volume 9.4 fL (7.4-10.4); Platelet Count 199 thou/uL (130-400); RBC Distribution Width 11.3 % (11.5-14.5); Red Blood Cell (RBC) Count 4.58 mill/uL (4.20-5.40); White Blood Cell (WBC) Count 6.8 thou/uL (4.8-10.8)
[2019-10-22 18:43] LABS: Bilirubin Negative (Negative); Blood, Urine Negative (Negative); Clarity Clear (Clear); Glucose, Urine (Dipstick) Normal (Negative); Leukocyte Negative Leu/uL (Negative); Nitrite Negative (Negative); Protein, Urine (Dipstick) Negative (Neg-Trace); Urobilinogen Normal mg/dL (Less than 2)
[2019-10-22 18:45] LABS: ALT (SGPT) 16 U/L (8-55); AST (SGOT) 21 U/L (5-34); Albumin 4.4 g/dL (3.5-5.0); Alkaline Phosphatase 72 U/L (40-110); Anion Gap 8 mmol/L (10-20); BUN (Urea Nitrogen) 17 mg/dL (7.0-18.7); Bilirubin, Total 0.6 mg/dL (0.2-1.2); Calc. Creatinine Clearance 0 mL/min (70-130); Calcium 9.4 mg/dL (7.8-10.44); Carbon Dioxide 29 mmol/L (22-29); Chloride 104 mmol/L (98-107); Estimated GFR-MDRD Greater than 90; Globulin 2.6 g/dL (2.4-3.5); Glucose 87 mg/dL (70-105); Lipase 11 U/L (8-78); Potassium 3.9 mmol/L (3.5-5.1); Sodium 137 mmol/L (136-145)
[2019-10-22 18:45] LABS: Pregnancy Test - Urine (BHCG) Negative (Negative); Pregu Control Background? CLEAR/WHITE (CLR/WHITE); Pregu Control Bar Appear? YES (CONTROL BAR); Specific Gravity 1.018 (1.002-1.036)
== END 2019-10-22 22:10 | disposition left against medical advice (07) ==
LOC: ERS 17:50
DX: Z53.21 Procedure and treatment not carried out due to patient leaving prior to being seen by health care provider (principal)
CPT/HCPCS: 36415; 80053; 81003; 81025; 83690; 85025; 93005

== ENCOUNTER 2022-08-25 10:49 | Outpatient (CLI) | payer OTHER | END 2022-08-25 10:50 | disposition home or self-care (01) | LOC: SCSRAD 10:49 | PROVIDERS: ATTEND Physician Assistant | DX: M25.561 Pain in right knee (principal) ==